=== PATIENT | male | born 1950 | race Caucasian/White ===

== ENCOUNTER 2017-06-24 17:35 | Emergency (ER) | payer OTHER ==
[~2017-06-24] VITALS: Ht 180.3 cm; Wt 90.7 kg
[2017-06-24 17:42] VITALS: TEMP 36.8; Ht 180.3 cm; Wt 90.7 kg
[2017-06-24] MEDS ORDERED: DOXYCYCLINE HYCLATE 100 MG CAP PO STA (18:09)
[2017-06-24] MEDS ORDERED: GLC/500 PO (18:14)
[2017-06-24] MEDS ORDERED: CZR50 PO (18:14)
[2017-06-24] MEDS ORDERED: ATEN-173 PO (18:14)
[2017-06-24] MEDS ORDERED: ATOR-24 PO (18:14)
[2017-06-24 18:45] VITALS: BP 176/103; PULSE 47; O2SAT 97
--- NOTE | 2017-06-24 23:58 | EMERGENCY ROOM VISIT NOTE ---
History Report prepared by Beatrice: Jay Holley Under the Supervision of: Dr. Sergei Ramos D.O. First contact with patient: 17:44 Chief Complaint: BITE Stated Complaint: TICK BITE History of Present Illness The patient is a 67 year old male who presents to the Emergency Room with complaints of a constant rash on his right upper arm that occurred last night. The patient states he went to bed last night, and then woke this morning to a tick in his arm this morning. He reports his son pulled the tick out of him. The patient notes he has two dogs, and they slept in the room with him. He states he does not know what type of tick it was. The patient reports he has a history of hypertension. He denies headache, change in vision, fevers, chest pain, shortness of breath, nausea, vomiting, diarrhea, and rashes anywhere else. Source of History: patient Onset: last night Position: other (global) Quality: other (rash) Timing: constant Associated Symptoms: No fevers, No headache, No chest pain, No SOB, No nausea, No vomiting, No diarrhea, No rash (elsewhere) Note: Denies: changes in vision Review of Systems See HPI for pertinent positives & negatives. A total of 10 systems reviewed and were otherwise negative. Past Medical & Surgical Medical Problems: (1) HTN (hypertension) Family History FH: cancer Hypertension Social History Smoking Status: Never Smoker Alcohol Use: none Housing Status: lives with family Occupation Status: retired Current/Historical Medications Scheduled Atenolol (Tenormin), 25 MG PO DAILY Atorvastatin (Lipitor), 40 MG PO DAILY Losartan Potassium (Losartan Potassium), 50 MG PO DAILY Metformin Hcl (Glucophage), 500 MG PO BID Allergies Coded Allergies: BEE STING (Unverified Allergy, Unknown, ANAPHYLAXIS, 06/24/17) NSAIDs (Unverified Allergy, Unknown, SWELLING, 06/24/17) Uncoded Allergies: N (Allergy, Unknown, 10/24/02) NSAIDS, NOVACAINE ALEVE (Allergy, Unknown, 10/24/02) Physical Exam Vital Signs Date Time Temp Pulse Resp B/P (MAP) Pulse Ox O2 Delivery O2 Flow Rate FiO2 06/24/17 18:45 47 16 176/103 97 06/24/17 17:42 36.8 48 20 197/99 98 Room Air Physical Exam GENERAL: Sitting up in bed, alert, well appearing, well nourished, no distress, non-toxic EYE EXAM: normal conjunctiva OROPHARYNX: no exudate, no erythema, lips, buccal mucosa, and tongue normal and mucous membranes are moist LUNGS: Clear to auscultation. Normal chest wall mechanics HEART: Bradycardic. Positive S1, positive S2. ABDOMEN: abdomen soft, non-tender, normo-active bowel sounds, no masses, no rebound or guarding. BACK: Back is symmetrical on inspection and there is no deformity, no midline tenderness, no CVA tenderness. SKIN: Mid-humerus has an area of erythema that is 4.5 cm in diameter, slightly tender upon palpation, no streaking up arm, no retained tick. UPPER EXTREMITIES: upper extremities are grossly normal. LOWER EXTREMITIES: No pitting edema. NEURO EXAM: Normal sensorium. Medical Decision & Procedures Medications Administered Medications (Trade) Dose Ordered Sig/Elfego Route Start Time Stop Time Status Last Admin Dose Admin Doxycycline Hyclate (Vibramycin Cap) 200 mg NOW STAT PO 06/24/17 18:09 06/24/17 18:10 DC 06/24/17 18:18 200 MG ECG Indication: other (Hypertension) Rate (beats per minute): 49 Findings: left axis deviation, no ectopy ED Course ED COURSE: Vital signs were reviewed and showed hypertension and bradycardia. The patients medical record was reviewed The above diagnostic studies were performed and reviewed. ED treatments and interventions as stated above. 1746: The patient was evaluated in room C05. A complete history and physical examination was performed. 180: Ordered Doxycycline Hyclate 200mg PO 1835: Upon reevaluation, the patient is resting. I discussed my findings with the patient and he understands and agrees with the treatment plan. Based on the patients age, coexisting illnesses, exam and lab findings the decision to treat as an outpatient was made. The patient remained stable while under my care. The patient appeared well at the time of discharge. Medical Decision Differential diagnosis includes etiologies such as cellulitis, abscess, MRSA infection, DVT, necrotizing fasciitis, dermatitis, drug eruption, as well as others were entertained. Patient is a 67-year-old male who presents to ER for a tick bite. He went to bed last night and there is no ticks on him. When he woke up in the morning he noticed one on his mid humerus. Tick was removed. To call in less than 24 hours. Was not engorged. Patient has mild surrounding erythema. Believe this is a localized reaction. Patient was givenpphx of doxy 200mg PO once. No surrounding cellulitis. EKG showed a bradycardia which was unchanged from previous. Patient was instructed to follow-up in regards to his hypertension. Discussed with Pt concerning signs and symptoms to watch out for. Pt was instructed to follow up with their PCP and discussed with the patient their option to return to the ED at anytime for persistent or worsening symptoms. The appropriate anticipatory guidance and out-patient management, including indications for return to the emergency department, were explained at length to the patient and understood. Medication Reconcilliation Current Medication List: was personally reviewed by me Blood Pressure Screening Patient's blood pressure: Elevated blood pressure Blood pressure disposition: Referred to PCP Impression Primary Impression: Tick bite Additional Impression: HTN (hypertension) Scribe Attestation The scribe's documentation has been prepared under my direction and personally reviewed by me in its entirety. I confirm that the note above accurately reflects all work, treatment, procedures, and medical decision making performed by me. Departure Information Dispostion Home / Self-Care Referrals Ivan Sargent III, M.D. (PCP) Forms HOME CARE DOCUMENTATION FORM, IMPORTANT VISIT INFORMATION Patient Instructions ED Bite Tick No Abx Tx, ED Facts Tick, My [facility] Additional Instructions Please follow up with your primary care doctor with in the next 48 hours. Any worsening of your symptoms, please return to the ED immediately. This includes any fevers greater than 100.4, redness streaking up your arm, purulent drainage from the bite site, bull's-eye around tick bite site or any other concerning signs or symptoms from your standpoint. You were found to have a blood pressure greater than 120 systolic over 90 diastolic. Due to the new Medicare guidelines, we are now recommending that you follow up with your primary care doctor in regards to this elevated blood pressure. Problem Qualifiers Primary Impression: Tick bite Encounter type: initial encounter Qualified Codes: W57.XXXA - Bitten or stung by nonvenomous insect and other nonvenomous arthropods, initial encounter Additional Impression: HTN (hypertension) Hypertension type: unspecified Qualified Codes: I10 - Essential (primary) hypertension
== END 2017-06-24 18:48 | disposition home or self-care (01) ==
LOC: C.EDB 17:37 → C.EDC 18:48
DX: S40.861A Insect bite (nonvenomous) of right upper arm, initial encounter (principal); W57.XXXA Bitten or stung by nonvenomous insect and other nonvenomous arthropods, initial encounter; I10 Essential (primary) hypertension; Z82.49 Family history of ischemic heart disease and other diseases of the circulatory system